=== PATIENT | female | born 1975 | race Caucasian/White ===

== ENCOUNTER 2021-06-13 00:08 | Inpatient (IN) | payer BC ==
[2021-06-13] MEDS ORDERED: cefOXitin 2 GM Vial ONE (06:48)
[2021-06-13] MEDS ORDERED: Propofol 200 MG/20 ML SDV ONE (07:06)
[2021-06-13] MEDS ORDERED: Neostigmine Methylsulfate 1 MG/ML 5 ML Syringe ONE (07:06)
[2021-06-13] MEDS ORDERED: Dexamethasone 4 MG/ML SDV ONE (07:06)
[2021-06-13] MEDS ORDERED: Glycopyrrolate 0.2 MG/ML 5 ML MDV ONE (07:06)
[2021-06-13] MEDS ORDERED: Succinylcholine 200 MG/10 ML MDV ONE (07:06)
[2021-06-13] MEDS ORDERED: Ondansetron 4 MG/2 ML SDV ONE (07:06)
[2021-06-13] MEDS ORDERED: Rocuronium 50 MG/5 ML Vial ONE (07:06)
[2021-06-13] MEDS ORDERED: fentaNYL 250 MCG/5 ML SDV ONE ×3 (07:08→09:44)
[2021-06-13] MEDS ORDERED: Celecoxib 200 MG Cap PO ONE (08:15)
[2021-06-13] MEDS ORDERED: Scopolamine 1.5 MG Transdermal Patch TRDERM SCH (08:15)
[2021-06-13] MEDS ORDERED: Acetaminophen 500 MG Tab PO ONE (08:15)
[2021-06-13] MEDS: Dextrose 5%-Lactated Ringers 1,000 ML IV SCH ×4 (08:48→23:01)
[2021-06-13] MEDS ORDERED: cefOXitin 2 GM in Sodium Chloride 0.9% 50 ML IV ONE (09:45)
[2021-06-13] MEDS ORDERED: Ketamine 500 MG/5 ML MDV IV SCH (10:00)
[2021-06-13] MEDS ORDERED: Ketamine 16 MG in Sodium Chloride 0.9% 19.84 ML IV SCH (10:00)
[2021-06-13] MEDS ORDERED: hydrOXYzine HCL 100 MG/2 ML SDV IM ONE (10:48)
[2021-06-13] MEDS ORDERED: HYDROmorphone 0.5 MG/0.5 ML Syringe IVPUSH PRN (11:48)
[2021-06-13] MEDS: HYDROmorphone 1 MG/ML Syringe IVPUSH PRN ×2 (12:05→14:12)
[2021-06-13] MEDS ORDERED: Cyclobenzaprine 10 MG Tab PO PRN (12:25)
[2021-06-13] MEDS ORDERED: oxyCODONE 5 MG Tab PO PRN (13:00)
[2021-06-13] MEDS ORDERED: Ondansetron 4 MG/2 ML SDV IVPUSH PRN (13:00)
[2021-06-13] MEDS ORDERED: traMADol 50 MG Tab PO PRN (13:00)
[2021-06-13] MEDS ORDERED: hydrOXYzine HCL 100 MG/2 ML SDV IM PRN (13:00)
[2021-06-13] MEDS ORDERED: Acetaminophen 500 MG Tab PO PRN (13:00)
[2021-06-13] MEDS ORDERED: Metoclopramide 10 MG/2 ML SDV IVPUSH PRN (13:00)
[2021-06-13] MEDS ORDERED: diphenhydrAMINE 50 MG/ML SDV IVPUSH PRN (13:00)
[2021-06-13] MEDS: Acetaminophen 500 MG Tab PO SCH ×2 (13:03→21:30)
[2021-06-13] MEDS: Labetalol 20 MG/4 ML Syringe IVPUSH PRN ×3 (15:12→17:41)
[2021-06-13] MEDS ORDERED: Pantoprazole 40 MG Vial IVPUSH SCH (16:00)
[2021-06-13] MEDS: cefOXitin 2 GM in Sodium Chloride 0.9% 50 ML IV SCH ×2 (16:01→21:32)
[2021-06-13] MEDS: MVI, Adult with Vitamin K 10 ML, Thiamine 200 MG, Zinc/Copper/Manganese/Selenium 1 ML i... IV SCH ×4 (16:08)
[2021-06-13] MEDS: Heparin Sodium 5,000 Units/ML Vial SUBCUT SCH (17:24)
[2021-06-14] MEDS ORDERED: Iopamidol 612 MG/ML 50 ML SDV PO ONE (04:00)
[2021-06-14] MEDS: Dextrose 5%-Lactated Ringers 1,000 ML IV SCH (04:25)
[2021-06-14] MEDS: cefOXitin 2 GM in Sodium Chloride 0.9% 50 ML IV SCH ×3 (04:26→15:42)
[2021-06-14] MEDS: Acetaminophen 500 MG Tab PO SCH ×3 (04:26→20:10)
[2021-06-14] MEDS: Heparin Sodium 5,000 Units/ML Vial SUBCUT SCH ×2 (05:02→17:27)
[2021-06-14] MEDS ORDERED: Dextrose 5%-Lactated Ringers 1,000 ML IV SCH (07:15)
[2021-06-14] MEDS: Levothyroxine 112 MCG Tab PO SCH (07:32)
[2021-06-14] MEDS: Celecoxib 200 MG Cap PO SCH ×2 (09:09→20:10)
[2021-06-14] MEDS: Losartan 50 MG Tab PO SCH (09:09)
[2021-06-14] MEDS: SCOPOLAMINE PATCH CHECK TOP SCH (09:11)
[2021-06-14] MEDS: MVI, Adult with Vitamin K 10 ML, Thiamine 200 MG, Zinc/Copper/Manganese/Selenium 1 ML i... IV SCH ×4 (15:43)
[2021-06-14] MEDS ORDERED: Pantoprazole 40 MG Delayed-Release Granules 1 Packet PO SCH (16:00)
[2021-06-15] MEDS: Heparin Sodium 5,000 Units/ML Vial SUBCUT SCH (05:13)
[2021-06-15] MEDS: Acetaminophen 500 MG Tab PO SCH (05:13)
[2021-06-15] MEDS: Levothyroxine 112 MCG Tab PO SCH (07:14)
[2021-06-15] MEDS ORDERED: Cyanocobalamin (Vitamin B12) 1,000 MCG/ML SDV IM ONE (09:00)
[2021-06-15] MEDS ORDERED: Magnesium Hydroxide 400 MG/5 ML Susp 30 ML Cup PO ONE (09:00)
[2021-06-15] MEDS: Celecoxib 200 MG Cap PO SCH (09:17)
[2021-06-15] MEDS: Losartan 50 MG Tab PO SCH (09:18)
[2021-06-15] MEDS: SCOPOLAMINE PATCH CHECK TOP SCH (09:19)
== END 2021-06-15 11:05 | disposition home or self-care (01) | DRG 403 ==
LOC: EDSTATUS 07:15 → JP.SDS 08:25 → JP.MS 08:25
PROVIDERS: ADMIT Surgery; ATTEND Surgery
PROC: 0DB64Z3 Excision of Stomach, Percutaneous Endoscopic Approach, Vertical (ICD-10-PCS; principal; 2021-06-13)
PROC: 0FB24ZX Excision of Left Lobe Liver, Percutaneous Endoscopic Approach, Diagnostic (ICD-10-PCS; 2021-06-13)
PROC: 0BUT4JZ Supplement Diaphragm with Synthetic Substitute, Percutaneous Endoscopic Approach (ICD-10-PCS; 2021-06-13)
DX: E66.01 Morbid (severe) obesity due to excess calories (principal); R16.0 Hepatomegaly, not elsewhere classified; K44.9 Diaphragmatic hernia without obstruction or gangrene; K21.9 Gastro-esophageal reflux disease without esophagitis; E03.9 Hypothyroidism, unspecified; G47.33 Obstructive sleep apnea (adult) (pediatric); I10 Essential (primary) hypertension; D64.9 Anemia, unspecified; Z91.013 Allergy to seafood; Z79.890 Hormone replacement therapy; Z79.899 Other long term (current) drug therapy; Z68.41 Body mass index [BMI] 40.0-44.9, adult
CPT/HCPCS: 36415; 74240; 74240-26; 82947; 84443; 84703; 86850; 86900; 86901; A9270-GY; C1713; C1781; C9113; J0171; J0330; J0694; J1100; J1170; J1644; J2405; J2704; J2710; J2795; J3010; J3410; J3411; J3420; J3490; J7030; J7121; Q9967